=== PATIENT | female | born 1985 ===

== ENCOUNTER 2020-09-25 14:24 | Outpatient (CLI) | payer OTHER | END 2020-09-25 14:37 | disposition home or self-care (01) | LOC: RAD 14:24 | PROVIDERS: ATTEND Orthopaedic Surgery | DX: M25.532 Pain in left wrist (principal) ==

== ENCOUNTER 2020-10-02 10:34 | Outpatient (CLI) | payer OTHER | END 2020-10-02 10:39 | disposition HB | LOC: MRI 10:34 | PROVIDERS: ATTEND Orthopaedic Surgery | DX: M25.532 Pain in left wrist (principal) | CPT/HCPCS: 73218 ==

== ENCOUNTER 2024-12-13 12:57 | Outpatient (CLI) | payer OTHER | END 2024-12-13 13:06 | disposition home or self-care (01) | LOC: RAD 12:57 | PROVIDERS: ATTEND Physical Medicine & Rehabilitation | DX: M54.6 Pain in thoracic spine (principal); M54.50 Low back pain, unspecified ==